=== PATIENT | female | born 1965 | race Caucasian/White ===

== ENCOUNTER 2017-10-29 11:05 | Emergency (ER) | payer MEDICAID, OTHER ==
[2017-10-29 11:09] VITALS: BP 144/97
[2017-10-29] MEDS ORDERED: FURO20TA19 PO (11:14)
[2017-10-29] MEDS ORDERED: LEVO-3 PO (11:14)
--- NOTE | 2017-10-29 11:18 | ER Report ---
History and Physical Time Seen By MD: 11:18 Hx. of Stated Complaint: RASH/RED BUMP ON LEFT CHEEK HPI/ROS CHIEF COMPLAINT: Swelling to left side of cheek HISTORY OF PRESENT ILLNESS: 51-year-old female patient presents to emergency room with complaint of swelling to left side of cheek. Patient states this been going on for the past week. She states that she initially thought that it was a pimple, she tried to express out any purulent material. She states the only thing she is able to get out was a clear fluid. She states since then she's has significant amounts of swelling, she's had tenderness. She states that it feels like she has significant amounts of pressure to the cheek. She states she has tried putting a potato on to draw out whatever was inside of it. Since there is no improvement with that. Patient denies having any fevers, chills, nausea, vomiting or diarrhea. Allergies: Coded Allergies: No Known Drug Allergies (Unverified , 10/29/17) Home Meds Active Scripts Sulfamethoxazole/Trimet 800-160 Mg Tab (BACTRIM DS TABLET) 1 Each Tablet, 1 TAB PO Q12H, #20 TAB Prov:MACK GOODE [employer] 10/29/17 Reported Medications Furosemide (LASIX) 20 Mg Tablet, 1 TAB PO Q8H, TAB 10/29/17 Levothyroxine Sodium (LEVOTHYROXINE SODIUM) 100 Mcg Tablet, 100 MCG PO QDAY, TAB 10/29/17 Past Medical/Surgical History Patient has a past medical history of asthma, hypothyroidism. Patient denies any surgical history. Reviewed Nurses Notes: Yes Hx Substance Use Disorder: No Hx Alcohol Use: No Constitutional Vital Sign - Last 24 Hours 10/29/17 11:09 Temp 99.0 Pulse 110 Resp 14 B/P (MAP) 144/97 Pulse Ox 97 O2 Delivery Room Air Physical Exam General appearance: Alert no distress. Respiratory: Chest is non tender, lungs are clear to auscultation. Cardiac: Regular rate and rhythm. Skin: Patient does have swelling, erythema to the left cheek. On palpation there is no fluctuant area. DIFFERENTIAL DIAGNOSIS: After history and physical exam differential diagnosis was considered for cellulitis, abscess, allergic reaction. Medical Decision Making ED Course/Re-evaluation ED Course Patient was admitted to an exam room, history and physical were obtained. Differential diagnoses were considered. On examination patient has swelling and redness to the left cheek. There is no fluctuant area on palpation. I discussed this with the patient. I believe we are looking at a cellulitis and the patient has soft tissue swelling. We will go ahead and place her on antibiotics, Bactrim , twice a day. She is to follow-up with her primary care provider with any concerns. She is to return to emergency room if condition worsens. I did discuss with patient that oftentimes to take 72 hours for the antibiotics start taking effect on a cellulitis like this. She is to wait that time to give antibiotics chance to work. Patient verbalized understanding and agreement with plan. Decision to Disposition Date: Oct 29, 2017 Decision to Disposition Time: 11:31 Depart Departure Latest Vital Signs Vital Signs Date Time Temp Pulse Resp B/P (MAP) Pulse Ox O2 Delivery O2 Flow Rate FiO2 10/29/17 11:09 99.0 110 14 144/97 97 Room Air Impression: Primary Impression: Facial cellulitis Condition: Improved Disposition: HOME OR SELF-CARE New Scripts Sulfamethoxazole/Trimet 800-160 Mg Tab (BACTRIM DS TABLET) 1 Each Tablet 1 TAB PO Q12H, #20 TAB Prov: MACK GOODE 10/29/17 Patient Instructions: Cellulitis (ED) Additional Instructions: Keep area clean. Follow up with your primary care provider in the next week. Continue with normal medications. Take Tylenol or Ibuprofen as needed for pain. Return to the ER if condition worsens. MACK GOODE Oct 29, 2017 11:18
[2017-10-29] MEDS ORDERED: SULF-198 PO ×2 (11:28→11:29)
== END 2017-10-29 11:41 | disposition home or self-care (01) ==
LOC: ER 11:28
DX: L03.211 Cellulitis of face (principal)
CPT/HCPCS: 99282

== ENCOUNTER 2018-02-06 15:14 | Emergency (ER) | payer MEDICAID ==
[~2018-02-06 15:14] MED LIST: FURO20TA19 PO; LEVO-3 PO; SULF-198 PO
--- NOTE | 2018-02-06 15:22 | ER Report ---
History and Physical Time Seen By MD: 15:22 HPI/ROS CHIEF COMPLAINT: Skin problem HISTORY OF PRESENT ILLNESS: This is a 52-year-old female presents to the emergency department for a skin problem. Patient states that about 2 days ago she developed an area that looked like a pimple on her left chin which has been increasing in size and she also developed an area on the left lateral side of her breast which has increased in size as well. Patient states that she did try to open both of these up and drained them she was able to express a little bit of "clear fluid" out of the one on her chin. Patient states that the pain on the chin is starting to increase and there is increased redness surrounding both of these areas. Patient denies aches or chills, no fevers, no chest pain or shortness of breath. REVIEW OF SYSTEMS: Respiratory: No cough, no dyspnea. Cardiovascular: No chest pain, no palpitations. Gastrointestinal: No vomiting, no abdominal pain. Musculoskeletal: No back pain. Integumentary: As above. Allergies: Coded Allergies: No Known Drug Allergies (Unverified , 02/06/18) Home Meds Active Scripts Sulfamethoxazole/Trimet 800-160 Mg Tab (BACTRIM DS TABLET) 1 Each Tablet, 1 TAB PO Q12H for 10 Days, #20 TAB 0 Refills Prov:MATHEW CORDOVA [facility]- 02/06/18 Cephalexin 500 Mg Tab (KEFLEX 500 MG TAB) 500 Mg Tablet, 500 MG PO Q6H for 10 Days, #40 TAB 0 Refills Prov:MATHEW CORDOVA [facility] 02/06/18 Sulfamethoxazole/Trimet 800-160 Mg Tab (BACTRIM DS TABLET) 1 Each Tablet, 1 TAB PO Q12H, #20 TAB Prov:MACK GOODE [facility] 10/29/17 Reported Medications Furosemide (LASIX) 20 Mg Tablet, 1 TAB PO Q8H, TAB 10/29/17 Levothyroxine Sodium (LEVOTHYROXINE SODIUM) 100 Mcg Tablet, 100 MCG PO QDAY, TAB 10/29/17 Past Medical/Surgical History Patient has a past medical and surgical history of asthma, hypothyroidism, asthma attacks, cellulitis. Reviewed Nurses Notes: Yes Hx Substance Use Disorder: No Hx Alcohol Use: No Constitutional Vital Sign - Last 24 Hours 02/06/18 02/06/18 15:21 16:05 Pulse 102 88 Resp 20 20 B/P (MAP) 155/101 146/94 (111) Pulse Ox 91 91 O2 Delivery Room Air Room Air Physical Exam General Appearance: The patient is alert, has no immediate need for airway protection and no current signs of toxicity. Eyes: Pupils equal and round no injection. Respiratory: Chest is non tender, lungs are clear to auscultation. Cardiac: regular rate and rhythm, no murmurs, clicks or rubs. Gastrointestinal: Abdomen is soft and non tender, no masses, bowel sounds normal. Musculoskeletal: Neck: Neck is supple and non tender. Extremities have full range of motion and are non tender. Skin: Cellulitis to the left chin, erythema, fluctuant, no drainage. Cellulitis to the left lateral breast with an area that has scabbed over from the patient picking, erythema no drainage nonfluctuant. DIFFERENTIAL DIAGNOSIS: After history and physical exam differential diagnosis was considered for abscess, cellulitis and dermatitis. Medical Decision Making ED Course/Re-evaluation ED Course The patient was admitted to room. History and physical were obtained. Differential diagnoses were considered. Did attempt an I&D as noted below unsuccessful no drainage. I did start the patient on Bactrim and Keflex. Detailed the patient to apply warm compresses 4-5 times a day to the chin as well as the left breast. Patient was instructed to take the antibiotics directed , return to the emergency department for any other concerns or worsening symptoms. Patient and other questions or concerns at this time is discharged home. Procedure: Abscess drainage. The patient's abscess was located on the left chin. I obtained verbal consent from the patient to drain the abscess who was informed about the possibility of bleeding and pain. The area was anesthetized with 2% lidocaine. The abscess was incised with a scalpel and there was no purulent drainage, only blood. The patient tolerated the procedure well. The procedure was performed by myself. Decision to Disposition Date: Feb 06, 2018 Decision to Disposition Time: 15:56 Depart Departure Latest Vital Signs Vital Signs Date Time Temp Pulse Resp B/P (MAP) Pulse Ox O2 Delivery O2 Flow Rate FiO2 02/06/18 16:05 88 20 146/94 (111) 91 Room Air Impression: Primary Impression: Facial cellulitis Additional Impression: Cellulitis of left breast Condition: Improved Disposition: HOME OR SELF-CARE New Scripts Sulfamethoxazole/Trimet 800-160 Mg Tab (BACTRIM DS TABLET) 1 Each Tablet 1 TAB PO Q12H for 10 Days, #20 TAB 0 Refills Prov: MATHEW CORDOVAP- 02/06/18 Cephalexin 500 Mg Tab (KEFLEX 500 MG TAB) 500 Mg Tablet 500 MG PO Q6H for 10 Days, #40 TAB 0 Refills Prov: MATHEW CORDOVA 02/06/18 Patient Instructions: Cellulitis (ED) Additional Instructions: Get plenty of rest. Drink plenty of water. Take both the antibiotics as directed. Complete the course on the antibiotics. I would anticipate some increased swelling and redness for the next day or 2 and then they 3 decrease in the redness and swelling. If you develop any shortness of breath or chest pain return to the emergency department immediately. Apply a warm compress 4-5 times a day to the area on the chin and the left breast. Follow-up with your primary care provider when he returned [place]. Problem Qualifiers MATHEW CORDOVAP- Feb 06, 2018 15:22
[2018-02-06] MEDS ORDERED: SULF-198 PO (15:58)
[2018-02-06] MEDS ORDERED: CEPH500T7 PO (15:58)
[2018-02-06 16:05] VITALS: BP 146/94
== END 2018-02-06 16:05 | disposition home or self-care (01) ==
LOC: ER 15:23
DX: L03.211 Cellulitis of face (principal); N61.0 Mastitis without abscess
CPT/HCPCS: 99282